=== PATIENT | male | born 1965 | race Caucasian/White ===

== ENCOUNTER 2016-06-16 14:44 | Emergency (ER) | payer OTHER ==
[~2016-06-16] VITALS: Ht 175.3 cm; Wt 83.6 kg
[~2016-06-16 14:44] MED LIST: IBUP-103 PO; ZNTT/150 PO
[2016-06-16 14:50] VITALS: TEMP 37.1; Ht 175.3 cm; Wt 83.6 kg
[2016-06-16] MEDS ORDERED: KETOROLAC TROMETHAMINE 30 MG/ML VIAL IV STA (15:05)
[2016-06-16] MEDS ORDERED: SODIUM CHLORIDE 0.9% 1000ML 1,000 ML IV STA (15:05)
[2016-06-16] MEDS ORDERED: SODIUM CHLORIDE 0.9% 1000ML 1,000 ML IV ONE (15:05)
[2016-06-16 15:22] LABS: BASO % 0.7 %; BASO ABS # 0.04 K/uL (0-0.2); COMPLETE YES; EOS % 0.2 %; HEMATOCRIT 43.2 % (42-52); IG% 0.2 %; LYMPH % 10.2 %; LYMPH ABS # 0.61 K/uL (1.2-3.4); MEAN CELL VOLUME 89.8 fL (80-100); MEAN CORPUSCULAR HGB CONC 35.6 g/dl (32-36); MEAN PLATELET VOLUME 9.1 fL (7.4-10.4); MONO % 13.8 %; NEUT % 74.9 %; PLATELET COUNT 189 K/uL (130-400); RED BLOOD COUNT 4.81 M/uL (4.7-6.1); WHITE BLOOD COUNT 5.96 K/uL (4.8-10.8)
[2016-06-16 15:41] LABS: ALT/SGPT 40 U/L (12-78); BLOOD UREA NITROGEN 16 mg/dl (7-18); BUN/CREATININE RATIO 13.7 (10-20); CALCIUM 9.1 mg/dl (8.5-10.1); CARBON DIOXIDE 26 mmol/L (21-32); CHLORIDE 103 mmol/L (98-107); GLUCOSE 112 mg/dl (70-99); POTASSIUM 4.1 mmol/L (3.5-5.1); SODIUM 138 mmol/L (136-145)
[2016-06-16 15:44] LABS: ALKALINE PHOSPHATASE 82 U/L (45-117); AST/SGOT 27 U/L (15-37)
--- NOTE | 2016-06-16 15:44 | DIAGNOSTIC IMAGING REPORT ---
CHEST ONE VIEW PORTABLE CLINICAL HISTORY: Difficult chest pain, severe headache. Fever, nausea. COMPARISON STUDY: 05/03/2013 FINDINGS: The heart is borderline enlarged. There is no failure. There is no focal pulmonary consolidation. There are no pleural effusions. There are minor left basilar atelectatic changes.[ IMPRESSION: No active disease in the chest. Electronically signed by: Nikos Fernandez M.D. 06/16/2016 3:42 PM Dictated Date/Time: 06/16/2016 3:42 PM
--- NOTE | 2016-06-16 15:59 | EMERGENCY ROOM VISIT NOTE ---
History Report prepared by William: Mani Garcia Under the Supervision of: Dr. Kuldip Luna M.D. First contact with patient: 14:57 Chief Complaint: ILLNESS Stated Complaint: SEVERE CLAY, STOMACH, FEVER, NAUSEA History of Present Illness The patient is a 50 year old male who presents to the Emergency Room with complaints of a persistent dry cough starting yesterday. The patient also complains of body aches, subjective fever, sneezing, and nausea. He took NyQuil without relief. He denies any recent ill contacts, chest pain, vomiting, abdominal pain, or any other complaints. He did not receive his flu shot this year. He is a current smoker. Source of History: patient Onset: yesterday Position: other (global) Quality: other (dry cough) Timing: other (persistent) Modifying Factors (Relieving): other (NyQuil without relief) Associated Symptoms: + fevers, + nausea, No abdominal pain, No chest pain, No vomiting Review of Systems See HPI for pertinent positives & negatives. A total of 10 systems reviewed and were otherwise negative. Past Medical & Surgical Medical Problems: (1) Blunt trauma of neck (2) Cholecystectomy (3) Colitis (4) Colonoscopy (5) Head trauma Old medical records were reviewed. Nurse's notes were reviewed and I agree with. Immunizations are up-to-date Family History FH: heart disease FH: lung disease FHx: cancer FHx: gallbladder disease Hypertension Kidney disease Kidney stones Social History Smoking Status: Current Every Day Smoker Alcohol Use: none Drug Use: none Marital Status: in relationship Occupation Status: employed Current/Historical Medications Scheduled Oseltamivir (Tamiflu), 75 MG PO BID Allergies Coded Allergies: No Known Allergies (Unverified , 06/16/16) Physical Exam Vital Signs Date Time Temp Pulse Resp B/P Pulse Ox O2 Delivery O2 Flow Rate FiO2 06/16/16 17:15 96 18 95/59 94 06/16/16 16:55 96 18 95/59 94 Room Air 06/16/16 14:50 37.1 98 18 110/73 98 Room Air Physical Exam General: Mildly-ill appearing but nontoxic, middle aged male, in no acute distress with a dry, hacking cough. HEENT: Normal cephalic atraumatic. Pupils are equal round and reactive to light. Extraocular movements are intact. Oropharynx is pink with moist mucous membranes. No swelling of the mouth lips or tongue. Neck: Supple with a midline trachea. No meningeal signs or stiffness, no JVD or bruits. No Stridor. Negative Kernig and Brudzinski's sign. Chest: Clear to auscultation bilaterally. No wheezes or rhonchi. No increased work of breathing. Heart: regular rate and rhythm. Abdomen: Soft nontender, nondistended without rebound guarding or rigidity. Extremities: No cyanosis clubbing or edema. No calf tenderness or assymetry Spine/Back. Non tender to palpation. No CVA tenderness Skin: Good turgor without rashes. Neurologic exam: Cranial nerves two through 12 are intact. Motor and sensation are intact and symmetrical throughout. Medical Decision & Procedures ER Provider Diagnostic Interpretation: X-ray results as stated below per interpretation by me and the radiologist: CHEST ONE VIEW PORTABLE CLINICAL HISTORY: Difficult chest pain, severe headache. Fever, nausea. COMPARISON STUDY: 05/03/2013 FINDINGS: The heart is borderline enlarged. There is no failure. There is no focal pulmonary consolidation. There are no pleural effusions. There are minor left basilar atelectatic changes.[ IMPRESSION: No active disease in the chest. Electronically signed by: Nikos Fernnadez M.D. 06/16/2016 3:42 PM Dictated Date/Time: 06/16/2016 3:42 PM Laboratory Results 06/16/16 15:15 Red Blood Count 4.81, Mean Corpuscular Volume 89.8, Mean Corpuscular Hemoglobin 32.0, Mean Corpuscular Hemoglobin Concent 35.6, Mean Platelet Volume 9.1, Neutrophils (%) (Auto) 74.9, Lymphocytes (%) (Auto) 10.2, Monocytes (%) (Auto) 13.8, Eosinophils (%) (Auto) 0.2, Basophils (%) (Auto) 0.7, Neutrophils # (Auto ) 4.47, Lymphocytes # (Auto) 0.61, Monocytes # (Auto) 0.82, Eosinophils # (Auto ) 0.01, Basophils # (Auto) 0.04 06/16/16 15:15 Test 06/16/16 15:15 06/16/16 15:20 White Blood Count 5.96 K/uL (4.8-10.8) Red Blood Count 4.81 M/uL (4.7-6.1) Hemoglobin 15.4 g/dL (14.0-18.0) Hematocrit 43.2 % (42-52) Mean Corpuscular Volume 89.8 fL (80-100) Mean Corpuscular Hemoglobin 32.0 pg (25-34) Mean Corpuscular Hemoglobin Concent 35.6 g/dl (32-36) Platelet Count 189 K/uL (130-400) Mean Platelet Volume 9.1 fL (7.4-10.4) Neutrophils (%) (Auto) 74.9 % Lymphocytes (%) (Auto) 10.2 % Monocytes (%) (Auto) 13.8 % Eosinophils (%) (Auto) 0.2 % Basophils (%) (Auto) 0.7 % Neutrophils # (Auto) 4.47 K/uL (1.4-6.5) Lymphocytes # (Auto) 0.61 K/uL (1.2-3.4) Monocytes # (Auto) 0.82 K/uL (0.11-0.59) Eosinophils # (Auto) 0.01 K/uL (0-0.5) Basophils # (Auto) 0.04 K/uL (0-0.2) RDW Standard Deviation 42.1 fL (36.4-46.3) RDW Coefficient of Variation 12.8 % (11.5-14.5) Immature Granulocyte % (Auto) 0.2 % Immature Granulocyte # (Auto) 0.01 K/uL (0.00-0.02) Anion Gap 9.0 mmol/L (3-11) Est Creatinine Clear Calc Drug Dose 73.7 ml/min Estimated GFR () 81.2 Estimated GFR (Non- 70.1 BUN/Creatinine Ratio 13.7 (10-20) Calcium Level 9.1 mg/dl (8.5-10.1) Total Bilirubin 0.4 mg/dl (0.2-1) Direct Bilirubin < 0.1 mg/dl (0-0.2) Aspartate Amino Transf (AST/SGOT) 27 U/L (15-37) Alanine Aminotransferase (ALT/SGPT) 40 U/L (12-78) Alkaline Phosphatase 82 U/L (45-117) Total Protein 7.7 gm/dl (6.4-8.2) Albumin 3.8 gm/dl (3.4-5.0) Lipase 185 U/L (73-393) Influenza Type A Antigen Neg for Influ A (NEG) Influenza Type B Antigen Neg for Influ B (NEG) Laboratory studies as stated above per my review. Medications Administered Medications (Trade) Dose Ordered Sig/Mariposa Route Start Time Stop Time Status Last Admin Dose Admin Sodium Chloride (Nss 1000ml) 1,000 ml @ 999 mls/hr Q1H1M STAT IV 06/16/16 15:05 06/16/16 16:05 DC 06/16/16 15:17 999 MLS/HR Ketorolac Tromethamine (Toradol Inj) 30 mg NOW STAT IV 06/16/16 15:05 06/16/16 15:07 DC 06/16/16 15:20 30 MG Oseltamivir Phosphate (Tamiflu Cap) 75 mg NOW STAT PO 06/16/16 16:13 06/16/16 16:14 DC 06/16/16 17:10 75 MG ED Course 1457: Past medical records reviewed. The patient was evaluated in room C12B, and a complete history and physical examination were performed. 1505: Toradol Inj 30 mg IV, Sodium Chloride 1000 ml @ 200 mls/hr IV, Sodium Chloride 1000 ml @ 999 mls/hr IV 1613: Tamiflu Cap 75 mg PO. Upon reevaluation, the patient is resting comfortably. I discussed the results and treatment plan with him. He verbalized agreement of the treatment plan. The patient was discharged home. Medical Decision Differential diagnosis includes but is not limited to influenza, bronchitis, pneumonia, dehydration, electrolyte and metabolic abnormality. This patient comes in as described above he has influenza-like illness. He has a constellation of symptoms including headache and body aches dry hacking cough. He looks well on exam. He is nontoxic and non-lethargic and he has nothing to suggest meningitis or encephalitis. IV access established hydrated with IV normal saline and he given Toradol 30 mg IV. Chest x-ray was obtained as well as multiple blood testing and influenza swab. He was reassessed frequently. Chest x-ray was clear and is not show pneumonia or pneumothorax or CHF. No acute electrode or metabolic analysis. He has nothing suggest has liver, gallbladder, or pancreas disease. Influenza swab was negative however this is not a perfect test. Symptoms are very consistent with influenza and I will treat with Tamiflu. He was given dose of Tamiflu here as well as prescription. He should rest and drink plenty of fluids use Tylenol and/or ibuprofen for pain. Do not exceed the [id number] recommended dosages. Return if: Worsening of symptoms, not tolerating fluids, fever orchills, any new problems or concerns.He was happy with the plan and discharged to home. Impression Primary Impression: Influenza-like illness Scribe Attestation The scribe's documentation has been prepared under my direction and personally reviewed by me in its entirety. I confirm that the note above accurately reflects all work, treatment, procedures, and medical decision making performed by me. Departure Information Dispostion Home / Self-Care Prescriptions Oseltamivir (Tamiflu) 75 Mg Cap 75 MG PO BID, #10 CAP Prov: Kuldip Luna M.D. 06/16/16 Referrals Dario Culp M.D. (PCP) Forms HOME CARE DOCUMENTATION FORM, IMPORTANT VISIT INFORMATION, WORK / SCHOOL INSTRUCTIONS Patient Instructions My [facility] Additional Instructions Rest. Drink plenty of fluids. Use Tamiflu twice a day for 5 days Use ibuprofen 400 mg every 6 hours as needed for fever or aches. Take with food Return if: Worsening of symptoms, not tolerating fluids, any new problems or concerns. Follow-up with your doctor in 1-2 days for recheck.
[2016-06-16] MEDS ORDERED: OSELTAMIVIR PHOSPHATE 75 MG CAP PO STA (16:13)
[2016-06-16] MEDS ORDERED: OSEL75CA12 PO (16:15)
[2016-06-16 17:15] VITALS: BP 95/59; PULSE 96; O2SAT 94
== END 2016-06-16 17:58 | disposition home or self-care (01) ==
LOC: C.EDB 14:46 → C.EDC 17:58
DX: J11.1 Influenza due to unidentified influenza virus with other respiratory manifestations (principal); F17.200 Nicotine dependence, unspecified, uncomplicated; Z82.49 Family history of ischemic heart disease and other diseases of the circulatory system; Z84.1 Family history of disorders of kidney and ureter

== ENCOUNTER 2021-05-16 08:00 | Inpatient (IN) ==
[2021-05-16] MEDS ORDERED: SODIUM CHLORIDE 0.9% 1000ML 1,000 ML IV STA (08:28)
[2021-05-16] MEDS ORDERED: ALBUT/IPRATROP 3MG/0.5MG NEB 3 ML VIAL NEB STA (08:28)
[2021-05-16] MEDS ORDERED: KETOROLAC TROMETHAMINE 15 MG/ML VIAL IV STA (08:28)
[2021-05-16] MEDS ORDERED: ONDANSETRON INJ 2 MG/ML 2 ML VIAL IV STA (08:28)
--- NOTE | 2021-05-16 08:33 | Emergency Department Note ---
Impression & Plan Acute hypoxemic respiratory failure due to COVID-19, Pneumonia due to COVID-19 virus, Dehydration ED Provider Note CHIEF COMPLAINT: Dehydration, cough, congestion, nausea/vomiting/diarrhea HISTORY OF PRESENTING ILLNESS: This is a 55-year-old male who presents to the emergency department by private vehicle who presents to the emergency department by private vehicle with complaint of nausea/vomiting and diarrhea with cough and congestion for the past 8 days. Patient is concerned that he may be dehydrated noting that he has not been able to eat or drink much for the past 3-4 days. He has been having some headaches and body aches off and on for the past 8 days as well and notes generalized abdominal cramping, but denies any persistent abdominal pain. He rates his headaches and body aches 10/10. He has not tried any [id number] medications for his symptoms. He denies any chest pain, chest tightness, or shortness of breath, palpitations, dizziness or syncope. He is a smoker, noting he usually smokes about half a pack per day, but has not been able to smoke for the past 8 days due to his illness. He denies any known exposures for COVID-19 or influenza, but does state he was around friends and family for the holidays. He is not vaccinated for COVID-19 and has not received a flu shot. REVIEW OF SYSTEMS: A complete 10 point review of systems was reviewed with the patient with pertinent positives and negatives as per history of present illness. All else were negative. PAST MEDICAL HISTORY: No significant past medical or surgical history SOCIAL HISTORY: Lives at home, he is a current everyday smoker ALLERGIES: No known allergies PHYSICAL EXAM: CONSTITUTIONAL: Pleasant and cooperative. Nontoxic-appearing and in no acute distress. Moderately dehydrated. HEENT: Normocephalic, atraumatic. PERRL, EOMI with no nystagmus. Pharynx normal. Dry mucous membranes. NECK: Supple, full active range of motion without discomfort. No cervical adenopathy. No neck stiffness or meningismus. RESPIRATORY: Diminished in the bases with scattered expiratory wheezes thr oughout, no crackles, rhonchi or stridor. No tachypnea or labored breathing, no accessory muscle use. Equal expansion bilaterally. CARDIOVASCULAR: Regular rate and rhythm with no murmurs, rubs or gallops. Normal peripheral perfusion. No edema. GASTROINTESTINAL: Soft, nontender to palpation throughout nondistended. No palpable masses or HSM. Bowel sounds present in all quadrants. No CVA tenderne ss bilaterally. MUSCULOSKELETAL: Full range of motion of all joints without discomfort. INTEGUMENTARY: No rash or other significant dermatologic conditions noted. NEUROLOGIC: Alert and oriented X 4 with normal affect. Cranial nerves II-XII grossly intact, no facial droop. No focal neurologic deficits noted. Normal strength and sensation in all 4 extremities. Normal speech. Normal gait observed. ED COURSE AND MEDICAL DECISION MAKING: CC: Patient presenting with complaint of dehydration, cough, congestion, nausea/vomiting/diarrhea DIFFERENTIAL DIAGNOSIS: Includes, but not limited to COVID-19, influenza, dehydration, electrolyte abnormality, bronchitis, pneumonia, gastroenteritis, infectious colitis, UTI, COPD, among others. INTERPRETATION OF LABS: Mild leukopenia, no anemia, mild thrombocytopenia, mild hyponatremia, no other significant electrolyte abnormalities, elevated BUN with normal creatinine, AST mildly elevated, otherwise normal liver enzymes. Mildly elevated lipase. CRP is slightly elevated, procalcitonin not significantly elevated. Influenza negative, COVID-19 positive. MEDICATION RECONCILIATION: I attest that I have personally reviewed the patient's current medication list. INITIAL VITAL SIGNS REVIEW: I reviewed the patient's initial vital signs and interpret them as follows: T: Afebrile; BP: Normotensive; HR: Mildly tachycardic; RR: Within normal limits; Pulse Ox: Within normal limits on room air. MDM SUMMARY: Patient was evaluated at bedside, history and physical exam performed.The patient was evaluated in room A9 under full Covid precautions. Patient is alert and oriented, in no acute distress, resting calmly in the stretcher. He is afebrile and nontoxic-appearing, but appears moderately dehydrated clinically. Lungs are diminished in the bases with scattered expiratory wheezes. No respiratory distress. Cardiac monitoring: An order was placed for continuous cardiac monitoring. The monitor shows a rate of 92 bpm with normal sinus rhythm. I do strongly suspect the patient may have COVID-19 as cause of his symptoms. Orders were placed for labs, including COVID-19 and influenza testing, UA, IV fluid bolus for hydration, IV Toradol for pain, IV Zofran for nausea, DuoNeb for cough and wheezing, chest x-ray. Patient discussed with Dr. Maynard, who agrees with my assessment, plan, and disposition. Labs and imaging reviewed, labs notable for mild leukopenia and thrombocytopenia, with no anemia. Does appear to be mildly dehydrated with elevated BUN and mild hyponatremia. Lipase was noted to have mild elevation. Testing for COVID-19 was positive. Influenza was negative. Chest x-ray shows patchy interstitial and alveolar opacities bilaterally which appears consistent with Covid/viral pneumonia. Nursing staff notified me that the patient has been hypoxic with sats of 88%, and he was placed on 2L nasal cannula. I reevaluated the patient, he does not appear visibly distressed. I discussed with the patient that as he is now requiring oxygen with his COVID-19 infection and pneumonia that I would recommend admission to the hospital and he was agreeable to this. Additional orders were placed for IV Decadron 6 mg, CRP and procalcitonin labs added on. I spoke on the phone with Dr. Adams, [facility] Hospitalist, who agreed to evaluate the patient for admission. The patient was stable at the time of admission. The chart was completed utilizing [employer] Speech voice recognition software. Grammatical errors, random word insertions, pronoun errors, and incomplete sentences are an occasional consequence of this system due to software limitations, ambient noise, and hardware issues. Any formal questions or con cerns about the content, text, or information contained within the body of this dictation should be directly addressed to the nurse practitioner for clarification. Past Med/Surg History Medical History Right rotator cuff tear arthropathy Surgical History No significant past surgical history Social History Smoking Status: Current every day smoker Tobacco Type: Cigarettes Preferred Language: Honduran marital status: Life Partner current occupational status: employed Feels Safe at Home: Yes Allergies Allergies Allergy/AdvReac Type Severity Reaction Status Date / Time No Known Allergies Allergy Unverified 05/16/21 09:35 Home Meds Home Medications Medication Instructions Recorded Confirmed ascorbic acid (vitamin C) 125 mg 0 mg PO QAM 05/16/21 05/16/21 chewable tablet (Vitamin C) ibuprofen 200 mg tablet (Advil) 600 mg PO QAM 05/16/21 05/16/21 Results & Data (ED) Vital Signs Vital Signs - 24 hr 05/16/21 08:06 05/16/21 09:30 05/16/21 09:42 Temperature 37.2 C Temperature Source Oral Pulse Rate 101 H 86 Pulse Rate [Right Finger] 88 Pulse Rate from SpO2 Sensor 86 Respiratory Rate 20 16 18 Respiratory Effort / Characteristics Non-Labored Respiratory Depth Normal Blood Pressure 101/71 Blood Pressure [Left Arm] 108/76 Blood Pressure Mean 81 Blood Pressure Mean [Left Arm] 86 Pulse Oximetry 97 88 L 94 Oxygen Delivery Method Room Air Room Air Oxygen Flow Rate Sepsis Recent Fever Within 48 Hours Yes Sepsis New/Unexplained Change in Mental Status No Sepsis Action Taken by Nursing No Action Required 05/16/21 09:46 05/16/21 09:47 05/16/21 10:00 Temperature Temperature Source Pulse Rate 83 Pulse Rate [Right Finger] Pulse Rate from SpO2 Sensor 84 Respiratory Rate 19 Respiratory Effort / Characteristics Respiratory Depth Blood Pressure 105/62 Blood Pressure [Left Arm] Blood Pressure Mean 76 Blood Pressure Mean [Left Arm] Pulse Oximetry 88 L 88 L 95 Oxygen Delivery Method Room Air Nasal Cannula Oxygen Flow Rate 2 Sepsis Recent Fever Within 48 Hours Sepsis New/Unexplained Change in Mental Status Sepsis Action Taken by Nursing 05/16/21 10:30 05/16/21 11:00 Temperature Temperature Source Pulse Rate 87 81 Pulse Rate [Right Finger] Pulse Rate from SpO2 Sensor 86 80 Respiratory Rate 16 22 Respiratory Effort / Characteristics Respiratory Depth Blood Pressure 101/65 110/71 Blood Pressure [Left Arm] Blood Pressure Mean 77 84 Blood Pressure Mean [Left Arm] Pulse Oximetry 92 95 Oxygen Delivery Method Oxygen Flow Rate Sepsis Recent Fever Within 48 Hours Sepsis New/Unexplained Change in Mental Status Sepsis Action Taken by Nursing Laboratory Data Result diagrams: 05/16/21 08:50 05/16/21 08:50 Lab Results 05/16/21 05/16/21 05/16/21 Range/Units 08:20 08:50 08:50 WBC 3.69 L (4.8-10.8) K/uL RBC 5.17 (4.7-6.1) M/uL Hgb 16.4 (14.0-18.0) g/dL Hct 46.9 (42-52) % MCV 90.7 (80-100) fL MCH 31.7 (25-34) pg MCHC 35.0 (32-36) g/dL RDW Std Deviation 42.5 (36.4-46.3) fL RDW Coeff of Ashlee 12.7 (11.5-14.5) % Plt Count 114 L (130-400) K/uL MPV 10.9 H (7.4-10.4) fL Immature Gran % (Auto) 0.3 % Neut % (Auto) 61.2 % Lymph % (Auto) 32.5 % Johnston % (Auto) 5.7 % Eos % (Auto) 0.0 % Baso % (Auto) 0.3 % Neut # (Auto) 2.26 (1.4-6.5) K/uL Lymph # (Auto) 1.20 (1.2-3.4) K/uL Johnston # (Auto) 0.21 (0.11-0.59) K/uL Eos # (Auto) 0.00 (0-0.5) K/uL Baso # (Auto) 0.01 (0-0.2) K/uL Immature Gran # (Auto) 0.01 (0.00-0.02) K/uL Sodium 132 L (136-145) mmol/L Potassium 4.0 (3.5-5.1) mmol/L Chloride 98 (98-107) mmol/L Carbon Dioxide 30 (21-32) mmol/L Anion Gap 4.0 (3-11) BUN 25 H (7-18) mg/dl Creatinine 1.08 (0.6-1.4) mg/dl Est Cr Clr Drug Dosing 77.3 ml/min Est GFR ( Amer) 89.1 ml/min Est GFR (Non-Af Amer) 76.9 ml/min BUN/Creatinine Ratio 23.4 H (10-20) Glucose 112 H (70-99) mg/dl Calcium 9.1 (8.5-10.1) mg/dl Total Bilirubin 0.4 (0.2-1) mg/dl AST 68 H (15-37) U/L ALT 52 (12-78) Alkaline Phosphatase 60 (45-117) U/L C-Reactive Protein (0-0.29) mg/dl Total Protein 7.3 (6.4-8.2) gm/dl Albumin 3.4 (3.4-5.0) gm/dl Globulin 3.9 (2.5-4.0) gm/dl Albumin/Globulin Ratio 0.9 (0.9-2) Lipase 820 H (73-393) U/L Procalcitonin (0-0.5) ng/ml SARS-CoV-2, RNA, NAAT POSITIVE A* (NEGATIVE) 05/16/21 05/16/21 Range/Units 08:50 10:33 WBC (4.8-10.8) K/uL RBC (4.7-6.1) M/uL Hgb (14.0-18.0) g/dL Hct (42-52) % MCV (80-100) fL MCH (25-34) pg MCHC (32-36) g/dL RDW Std Deviation (36.4-46.3) fL RDW Coeff of Ashlee (11.5-14.5) % Plt Count (130-400) K/uL MPV (7.4-10.4) fL Immature Gran % (Auto) % Neut % (Auto) % Lymph % (Auto) % Johnston % (Auto) % Eos % (Auto) % Baso % (Auto) % Neut # (Auto) (1.4-6.5) K/uL Lymph # (Auto) (1.2-3.4) K/uL Johnston # (Auto) (0.11-0.59) K/uL Eos # (Auto) (0-0.5) K/uL Baso # (Auto) (0-0.2) K/uL Immature Gran # (Auto) (0.00-0.02) K/uL Sodium (136-145) mmol/L Potassium (3.5-5.1) mmol/L Chloride (98-107) mmol/L Carbon Dioxide (21-32) mmol/L Anion Gap (3-11) BUN (7-18) mg/dl Creatinine (0.6-1.4) mg/dl Est Cr Clr Drug Dosing ml/min Est GFR ( Amer) ml/min Est GFR (Non-Af Amer) ml/min BUN/Creatinine Ratio (10-20) Glucose (70-99) mg/dl Calcium (8.5-10.1) mg/dl Total Bilirubin (0.2-1) mg/dl AST (15-37) U/L ALT (12-78) Alkaline Phosphatase (45-117) U/L C-Reactive Protein 1.03 H (0-0.29) mg/dl Total Protein (6.4-8.2) gm/dl Albumin (3.4-5.0) gm/dl Globulin (2.5-4.0) gm/dl Albumin/Globulin Ratio (0.9-2) Lipase (73-393) U/L Procalcitonin 0.06 (0-0.5) ng/ml SARS-CoV-2, RNA, NAAT (NEGATIVE) Administered Medications Enoxaparin Sodium (Enoxaparin Inj 40 Mg/0.4 Ml Syr) 40 mg SQ Q12H MAX Stop: 06/15/21 12:59 Last Admin: 05/16/21 13:36 Dose: 40 mg Documented by: [id number] Discontinued Medications Acetaminophen (Acetaminophen 500 Mg Tab) Confirm Administered Dose 1,000 mg .ROUTE .STK-MED ONE Stop: 05/16/21 12:04 Last Admin: 05/16/21 12:07 Dose: 1,000 mg Documented by: [id number] Albuterol (Albut/Ipratrop 3mg/0.5mg Neb 3 Ml Vial) 3 ml NEB NOW STA; Protocol Stop: 05/16/21 08:29 Last Admin: 05/16/21 08:56 Dose: 3 ml Documented by: [id number] Dexamethasone Sodium Phosphate (DexamethasonePf 10 Mg/Ml Vial) 6 mg IV NOW ONE Stop: 05/16/21 09:58 Last Admin: 05/16/21 12:00 Dose: 6 mg Documented by: [id number] Sodium Chloride (Nss 1000ml) 1,000 mls @ 999 mls/hr IV .Q1H1M STA Stop: 05/16/21 09:28 Last Infusion: 05/16/21 10:48 Dose: 0 mls/hr Documented by: [id number] Admin: 05/16/21 08:56 Dose: 999 mls/hr Documented by: [id number] Ketorolac Tromethamine (Ketorolac Tromethamine 15 Mg/Ml Vial) 15 mg IV NOW STA Stop: 05/16/21 08:29 Last Admin: 05/16/21 08:56 Dose: 15 mg Documented by: [id number] Ondansetron HCl (Ondansetron Inj 2 Mg/Ml 2 Ml Vial) 4 mg IV NOW STA Stop: 05/16/21 08:29 Last Admin: 05/16/21 08:56 Dose: 4 mg Documented by: [id number] Imaging Data Radiologist's Impression: Chest X-Ray 05/16/21 08:28 XR chest 1V portable CLINICAL HISTORY: cough, congestion, poss COVID. COMPARISON STUDY: 06/16/2016 TECHNIQUE: 1 view of the chest FINDINGS: Single frontal view of the chest demonstrates the cardiomediastinal silhouette to be within normal limits. Minimal patchy interstitial and alveolar opacities are present involving the lower lobes bilaterally. The findings are most characteristic of a viral type pneumonitis. Covid 19 pneumonia should be excluded. There is no evidence for pleural effusion. There is no evidence for vascular congestion. There is no acute osseous pathology. IMPRESSION: Minimal patchy interstitial and alveolar opacities are present bilaterally characteristic of a viral type pneumonitis and probable early Covid 19 pneumonia. ACT 112: Negative or not required by law. Electronically signed by: Emmanuel De La Rosa M.D. 05/16/2021 8:46 AM Discharge Plan Visit Data Chief Complaint: Dehydration Stated Complaint: CLAY,SORE THROAT,CONGESTION,COUGH,DEHYDRATED ED Provider: Lucho Maynard ED Midlevel Provider: Raine Hatch Discharge Problem: Acute hypoxemic respiratory failure due to COVID-19, Pneumonia due to COVID-19 virus, Dehydration Patient Disposition: Admitted As Inpatient Condition: Good
--- NOTE | 2021-05-16 08:47 | XRay Report ---
XR chest 1V portable CLINICAL HISTORY: cough, congestion, poss COVID. COMPARISON STUDY: 06/16/2016 TECHNIQUE: 1 view of the chest FINDINGS: Single frontal view of the chest demonstrates the cardiomediastinal silhouette to be within normal li mits. Minimal patchy interstitial and alveolar opacities are present involving the lower lobes bilate rally. The findings are most characteristic of a viral type pneumonitis. Covid 19 pneumonia should be excluded. There is no evidence for pleural effusion. There is no evidence for vascular congestion. T here is no acute osseous pathology. IMPRESSION: Minimal patchy interstitial and alveolar opacities are present bilaterally characteristic of a viral type pneumonitis and probable early Covid 19 pneumonia. ACT 112: Negative or not required by law. Electronically signed by: Emmanuel De La Rosa M.D. 05/16/2021 8:46 AM
[2021-05-16 09:01] LABS: Basophils # (auto) 0.01 K/uL (0-0.2); Basophils % (auto) 0.3 %; Hematocrit (blood only) 46.9 % (42-52); Hemoglobin 16.4 g/dL (14.0-18.0); Immature Granulocytes # (auto) 0.01 K/uL (0.00-0.02); Immature Granulocytes % (auto) 0.3 %; Lymphocytes % (auto) 32.5 %; Mean Corpuscular Hemoglobin 31.7 pg (25-34); Mean Corpuscular Volume 90.7 fL (80-100); Mean Platelet Volume 10.9 fL (7.4-10.4); Monocytes # (auto) 0.21 K/uL (0.11-0.59); Monocytes % (auto) 5.7 %; Neutrophils # (auto) 2.26 K/uL (1.4-6.5); Neutrophils % (auto) 61.2 %; Platelet Count 114 K/uL (130-400); RDW Coefficient of Variation 12.7 % (11.5-14.5); RDW Standard Deviation 42.5 fL (36.4-46.3); Red Blood Count 5.17 M/uL (4.7-6.1); White Blood Count 3.69 K/uL (4.8-10.8)
[2021-05-16 09:23] LABS: Albumin Level 3.4 gm/dl (3.4-5.0); BUN Creatinine Ratio 23.4 (10-20); Calcium 9.1 mg/dl (8.5-10.1); Creatinine Clr Calc Pharmacy 77.3 ml/min; Est GFR (African American) 89.1 ml/min; Est GFR (Non-African American) 76.9 ml/min
[2021-05-16 09:26] LABS: Albumin Globulin Ratio 0.9 (0.9-2); Bilirubin,Total 0.4 mg/dl (0.2-1); Globulin 3.9 gm/dl (2.5-4.0); Total Protein 7.3 gm/dl (6.4-8.2)
[2021-05-16 09:27] LABS: Influenza A virus by PCR Negative (Negative); Influenza B virus by PCR Negative (Negative)
[2021-05-16] MEDS ORDERED: dexAMETHasone**PF** 10 MG/ML VIAL IV ONE (09:57)
--- NOTE | 2021-05-16 10:33 | History & Physical Report ---
Date of Service May 16, 2021 Assessment & Plan (1) Acute respiratory failure with hypoxia: Plan: Perry is a 55-year-old male with no significant past medical history who presents with acute hypoxic respiratory failure 2/2 Covid pneumonia. Presented with dehydration, fatigue, and shortness of breath. Acute hypoxic respiratory failure 2/2 Covid pneumonia Covid positive Vaccination status: Unvaccinated First day of symptoms: First day of sx 05/07-05/08/21 (8-9 days prior to admission) Flu A-/flu B- CRP 1.03 - CXR: Minimal patchy interstitial and alveolar opacities are present bilaterally characteristic of a viral type pneumonitis and probable early Covid 19 pneumonia. Hypoxic to 88% requiring 2 L of supplemental nasal cannula Home oxygen: No requirements Creatinine normal AST 68, ALT 52 Remdesivir: Discussed risk/benefits. Offered to patient, although discussed that it is most effective early in disease with minimal benefit and is not indicated at day 10. Following shared decision making defer remdesivir, continue with Decadron. Continue dexamethasone daily x10-day course Baricitinib: Not indicated, CRP less than 7.5 and not requiring high flow - Lovenox COVID DVT PPx - 1/2 ppd tobacco use none in last week (2) COVID-19: Plan: - As above Plan: DVT PPx: Lovenox as above Diet: Regular Disposition: Medical surgical CODE STATUS: Full code, discussed with patient History of Present Illness Chief Complaint: Fatigue, Shortness of Breath Primary Care Provider: Dario Culp MD Perry is a 55-year-old male with no significant past medical history who presents with acute hypoxic respiratory failure 2/2 Covid pneumonia. Presented with dehydration, fatigue, and shortness of breath. Patient is 55-year-old male who denies other past medical history including heart disease and lung disease who presents with about 8 days of Covid symptoms which started with weakness, fatigue, cough, and some shortness of breath. He reports multiple people in his home including his children and his girlfriend have been sick and had a cough, his daughter was tested for school and was most recently negative. He reports he has had decreased appetite and some intermittent nausea but no vomiting, diarrhea, constipation. He has had loss of the sense of taste and smell. He is short of breath coming into the emergency department, reports he feels comfortable and not short of breath at time of bedside assessment while on 2 L of nasal cannula. He has a nonproductive cough. He is not vaccinated. Denies chest pain, chest pressure, palpitations, syncope, presyncope, focal weakness. Medical History: Reviewed, denies PMHx Medications: Reviewed, No chronic meds Surgical History: Reviewed, denies Allergies: Reviewed, NKDA Social History: 1/2 ppd tobacco use, non in last week. Declines nicotine patch. Denies etoh and rec drug use. Code Status: Full Allergies Allergy/AdvReac Type Severity Reaction Status Date / Time No Known Allergies Allergy Unverified 05/16/21 09:35 Home Medications Medication Instructions Recorded Confirmed Type ascorbic acid (vitamin C) 125 mg 0 mg PO QAM 05/16/21 05/16/21 History chewable tablet (Vitamin C) ibuprofen 200 mg tablet (Advil) 600 mg PO QAM 05/16/21 05/16/21 History Past Med/Surg History Medical History Right rotator cuff tear arthropathy Surgical History No significant past surgical history Social History Smoking Status: Current every day smoker Tobacco Type: Cigarettes Preferred Language: Malay marital status: Life Partner current occupational status: employed Feels Safe at Home: Yes Review of Systems Review of Systems: All systems reviewed & are unremarkable except as noted in HPI & below Physical Exam Physical Exam: General: A&Ox3. NAD. Cooperative. HEENT: Atraumatic, normocephalic. Visual acuity and hearing grossly intact. Pupils equal and reactive to light. Pulm: CTAB A&P. -wheezes, -rales, -rhonchi. Symmetrical chest rise. No increased work of breathing. No respiratory distress. Cardiac: RRR, -mrg. Radial pulses intact and symmetrical. Abdominal: Nontender, nondistended, soft. BS present. Ext: Warm, dry. No pitting edema. 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 Sensation to soft touch intact bilaterally without asymmetry. PT, DP, and radial pulses intact. Results & Data Results & Data ([facility]) Vital Signs (Past 12 Hours) Vital Signs Temp Pulse Pulse Resp BP BP Pulse Ox 05/16/21 09:47 88 L 05/16/21 09:46 88 L 05/16/21 09:30 88 16 108/76 88 L 05/16/21 08:06 37.2 C 101 H 20 101/71 97 PG Care Time/CCT Total # of Minutes Spent Total Time Spent with Patient: Total time spent is greater than 50% in coordination of care (as documented) at patient's floor/unit and/or counseling patient: Coding Level of Care Code 61383 Initial Inpt Care Lvl 2 Diagnoses Acute respiratory failure with hypoxia J96.01 COVID-19 U07.1
[2021-05-16] MEDS ORDERED: ACETAMINOPHEN 500 MG TAB ONE (12:03)
[2021-05-16] MEDS ORDERED: ACETAMINOPHEN 325 MG TAB PO PRN (12:38)
[2021-05-16] MEDS ORDERED: POLYETHYLENE (MIRALAX) 17 GM PACK PO PRN (12:38)
[2021-05-16] MEDS: ENOXAPARIN INJ 40 MG/0.4 ML SYR SQ SCH (13:36)
[2021-05-16] MEDS ORDERED: SODIUM CHLORIDE 0.9% 1000ML 1,000 ML IV SCH (14:45)
[2021-05-16 21:41] LABS: Appearance Urine Clear (Clear); Bacteria Urine Automated Negative (Negative); Bilirubin Urine Negative (Negative); Blood Urine 1+ (Negative); Color Urine Yellow; Epithelial Cell Urine Auto >30 /lpf (0-5); Glucose Urine UA Trace (Negative); Ketones Urine Negative (Negative); Leukocyte Esterase Urine Negative (Negative); Nitrite Urine Negative (Negative); Protein Urine 2+ (Negative); RBC Urine Automated 0-4 /hpf (0-4); Specific Gravity Urine 1.023 (1.000-1.030); Urobilinogen Urine Positive (Negative); pH Urine 6.5 (4.5-7.5)
[2021-05-17] MEDS: ENOXAPARIN INJ 40 MG/0.4 ML SYR SQ SCH ×2 (01:06→13:36)
[2021-05-17 07:08] LABS: Hematocrit (blood only) 42.5 % (42-52); Hemoglobin 14.6 g/dL (14.0-18.0); Immature Granulocytes # (auto) 0.03 K/uL (0.00-0.02); Immature Granulocytes % (auto) 0.7 %; Lymphocytes # (auto) 1.07 K/uL (1.2-3.4); Mean Corpuscular Hemoglobin 31.5 pg (25-34); Mean Corpuscular Hgb Conc 34.4 g/dL (32-36); Mean Corpuscular Volume 91.8 fL (80-100); Mean Platelet Volume 11.2 fL (7.4-10.4); Monocytes # (auto) 0.25 K/uL (0.11-0.59); Monocytes % (auto) 5.6 %; Neutrophils # (auto) 3.11 K/uL (1.4-6.5); Neutrophils % (auto) 69.7 %; Platelet Count 134 K/uL (130-400); RDW Coefficient of Variation 12.8 % (11.5-14.5); RDW Standard Deviation 43.2 fL (36.4-46.3); Red Blood Count 4.63 M/uL (4.7-6.1); White Blood Count 4.46 K/uL (4.8-10.8)
[2021-05-17 07:48] LABS: Albumin Globulin Ratio 0.9 (0.9-2); Albumin Level 2.9 gm/dl (3.4-5.0); BUN Creatinine Ratio 24.9 (10-20); Bilirubin,Total 0.3 mg/dl (0.2-1); Calcium 8.6 mg/dl (8.5-10.1); Est GFR (African American) 117.8 ml/min; Est GFR (Non-African American) 101.6 ml/min; Globulin 3.4 gm/dl (2.5-4.0); Total Protein 6.3 gm/dl (6.4-8.2)
[2021-05-17 07:51] LABS: C Reactive Protein 1.05 mg/dl (0-0.29)
[2021-05-17] MEDS: dexAMETHasone 6 MG in SYRINGE 0 ML IV SCH (07:53)
[2021-05-17] MEDS: BENZONATATE 100 MG CAPSULE PO PRN ×2 (10:11→18:45)
--- NOTE | 2021-05-17 13:46 | Hospitalist Progress Note ---
Date of Service May 17, 2021 Assessment & Plan (1) Acute respiratory failure with hypoxia: Plan: Perry is a 55-year-old male with no significant past medical history who presents with acute hypoxic respiratory failure 2/2 Covid pneumonia. Presented with dehydration, fatigue, and shortness of breath. Acute hypoxic respiratory failure 2/2 Covid pneumonia Covid positive Vaccination status: Unvaccinated First day of symptoms: First day of sx 05/07-05/08/21 (8-9 days prior to admission) Flu A-/flu B- - CXR: Minimal patchy interstitial and alveolar opacities are present bilaterally characteristic of a viral type pneumonitis and probable early Covid 19 pneumonia. Hypoxic to 88% requiring 2 L of supplemental nasal cannula Home oxygen: No requirements Creatinine normal AST 68, ALT 52 Remdesivir: Discussed risk/benefits. Offered to patient, although discussed that it is most effective early in disease with minimal benefit and is not indicated at day 10. Following shared decision making defer remdesivir, continue with Decadron. Continue dexamethasone daily x10-day course Baricitinib: Not indicated, CRP less than 7.5 and not requiring high flow - Lovenox COVID DVT PPx - 1/2 ppd tobacco use none in last week Patient with continued now O2 requirement some low-grade temperatures [id number] intermittently with some feeling of fever/chills. CXR not consistent with bacterial pneumonia, pro-[place] normal, no other obvious source of infection. Patient without leg swelling or tachycardia,? Viral versus atelectatic. Continue to follow clinically at this time. (2) COVID-19: Plan: - As above Plan: DVT PPx: Lovenox as above Diet: Regular Disposition: Medical surgical CODE STATUS: Full code, discussed with patient Admission and Anticipated Discharge Date Admission Date: May 16, 2021 Subjective Perry is seen at the bedside this morning. Reports he continues to feel fatigued with some shortness of breath, but improved from prior. Is currently on 2 L of nasal cannula. [place] a little feverish overnight, temperature 37.737.8 intermittently and last 12 hours. [place] like he had some chills. Mild nausea, no vomiting/diarrhea/constipation. Denies chest pain, chest pressure, palpitations. Denies difficulty breathing. No leg swelling/pain. Review of Systems Review of Systems: All systems reviewed & are unremarkable except as noted in Subjective Physical Exam Physical Exam: General: A&Ox3. NAD. Cooperative. HEENT: Atraumatic, normocephalic. Visual acuity and hearing grossly intact. Pupils equal and reactive to light. Pulm: Scattered crackles, no wheezes or rhonchi. Symmetrical chest rise. No increased work of breathing. No respiratory distress. Cardiac: RRR, -mrg. Radial pulses intact and symmetrical. Abdominal: Nontender, nondistended, soft. BS present. Ext: Warm, dry. No pitting edema. 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 Sensation to soft touch intact bilaterally without asymmetry. PT, DP, and radial pulses intact. Results & Data Results & Data ([facility]) Vital Signs (Past 12 Hours) Vital Signs Temp Pulse Resp BP BP Pulse Ox 05/17/21 12:13 37.7 C H 71 22 97/61 L 96 05/17/21 07:05 37.7 C H 76 19 103/67 94 PG Care Time/CCT Total # of Minutes Spent Total Time Spent with Patient: Total time spent is greater than 50% in coordination of care (as documented) at patient's floor/unit and/or counseling patient: Coding Level of Care Code 65616 Subseq Hosp Care Lvl 2 Diagnoses Acute respiratory failure with hypoxia J96.01 COVID-19 U07.1
[2021-05-18] MEDS: ENOXAPARIN INJ 40 MG/0.4 ML SYR SQ SCH ×2 (01:59→13:22)
[2021-05-18 06:26] LABS: Basophils # (auto) 0.01 K/uL (0-0.2); Basophils % (auto) 0.3 %; Hematocrit (blood only) 41.5 % (42-52); Hemoglobin 14.3 g/dL (14.0-18.0); Immature Granulocytes # (auto) 0.03 K/uL (0.00-0.02); Immature Granulocytes % (auto) 0.8 %; Lymphocytes % (auto) 34.3 %; Mean Corpuscular Hemoglobin 31.8 pg (25-34); Mean Corpuscular Hgb Conc 34.5 g/dL (32-36); Mean Corpuscular Volume 92.2 fL (80-100); Mean Platelet Volume 10.2 fL (7.4-10.4); Monocytes # (auto) 0.23 K/uL (0.11-0.59); Monocytes % (auto) 6.1 %; Neutrophils # (auto) 2.22 K/uL (1.4-6.5); Neutrophils % (auto) 58.5 %; Platelet Count 159 K/uL (130-400); RDW Coefficient of Variation 12.9 % (11.5-14.5); RDW Standard Deviation 43.8 fL (36.4-46.3); White Blood Count 3.79 K/uL (4.8-10.8)
[2021-05-18 06:59] LABS: Albumin Level 2.9 gm/dl (3.4-5.0); BUN Creatinine Ratio 21.5 (10-20); Calcium 8.7 mg/dl (8.5-10.1); Est GFR (Non-African American) 100.1 ml/min
[2021-05-18 07:02] LABS: Albumin Globulin Ratio 0.8 (0.9-2); Bilirubin,Total 0.3 mg/dl (0.2-1); Globulin 3.6 gm/dl (2.5-4.0); Total Protein 6.5 gm/dl (6.4-8.2)
--- NOTE | 2021-05-18 09:36 | XRay Report ---
SINGLE VIEW CHEST CLINICAL HISTORY: Covid. Cough FINDINGS: An AP, portable, upright chest radiograph is compared to study dated 05/16/2021. The cardio mediastinal silhouette is unremarkable. There is mild subpleural consolidation seen bilaterally. Atel ectasis is noted at the lung bases. No large pleural effusion or pneumothorax is identified. The bony thorax is grossly intact. IMPRESSION: Mild and predominantly subpleural consolidation is seen bilaterally, consistent with the reported history of a viral pneumonia. Radiographic follow-up to resolution is recommended. ACT 112: Negative or not required by law. Electronically signed by: Mello Dooley M.D. 05/18/2021 9:34 AM
[2021-05-18 09:43] LABS: Lyme Ab IgG w/WB Rflx Negative (Negative); Lyme Ab IgM w/WB Rflx Negative (Negative)
[2021-05-18] MEDS: dexAMETHasone 6 MG in SYRINGE 0 ML IV SCH (09:57)
--- NOTE | 2021-05-18 13:49 | Hospitalist Progress Note ---
Date of Service May 18, 2021 Assessment & Plan (1) Acute respiratory failure with hypoxia: Plan: Perry is a 55-year-old male with no significant past medical history who presents with acute hypoxic respiratory failure 2/2 Covid pneumonia. Presented with dehydration, fatigue, and shortness of breath. Acute hypoxic respiratory failure 2/2 Covid pneumonia Covid positive Vaccination status: Unvaccinated First day of symptoms: First day of sx 05/07-05/08/21 (8-9 days prior to admission) Flu A-/flu B- - CXR: Minimal patchy interstitial and alveolar opacities are present bilaterally characteristic of a viral type pneumonitis and probable early Covid 19 pneumonia. Hypoxic to 88% requiring 2 L of supplemental nasal cannula Home oxygen: No requirements Creatinine normal AST 68, ALT 52 on admit Remdesivir: Discussed risk/benefits. Offered to patient, although discussed that it is most effective early in disease with minimal benefit and is not indicated at day 10. Following shared decision making defer remdesivir, continue with Decadron. Continue dexamethasone daily x10-day course Baricitinib: Not indicated, CRP less than 7.5 and not requiring high flow - Lovenox COVID DVT PPx - 1/2 ppd tobacco use none in last week Patient again with intermittent fevers overnight, T-max 38.2 with associated fever/chills. Blood cultures x2 ordered. Leukopenic. Lyme/Anaplasma studies ordered. Procalcitonin remains negative. CXR Mild and predominantly subpleural consolidation is seen bilaterally, consistent with the reported history of a viral pneumonia. Radiographic follow-up to resolution is recommended. Patient b reathing well with inspiratory spirometry ordered, does not appear atelectatic. No tachycardia, leg swelling or rapidly increasing hypoxia to suggest PE as fever origin. If above eval negative will trial empiric treatment for atypical pneumonia/Z-James. (2) COVID-19: Plan: - As above Plan: DVT PPx: Lovenox as above Diet: Regular Disposition: Medical surgical CODE STATUS: Full code, discussed with patient Admission and Anticipated Discharge Date Admission Date: May 16, 2021 Subjective Perry is seen at the bedside this morning. He reports he was febrile overnight, and had night sweats associated with his fever. He feels well at time of bedside assessment and is not short of breath, reports he did feel he had some shortness of breath last night transiently. Denies nausea, vomiting, diarrhea, constipation. Denies chest pain, chest pressure, palpitations. Endorses cough. No leg swelling, no inspiratory pain. Review of Systems Review of Systems: All systems reviewed & are unremarkable except as noted in Subjective Physical Exam Physical Exam: General: A&Ox3. NAD. Cooperative. HEENT: Atraumatic, normocephalic. Visual acuity and hearing grossly intact. Pupils equal and reactive to light. Pulm: Scattered crackles, no wheezes or rhonchi. Symmetrical chest rise. No increased work of breathing. No respiratory distress. Cardiac: RRR, -mrg. Radial pulses intact and symmetrical. Abdominal: Nontender, nondistended, soft. BS present. Ext: Warm, dry. No pitting edema. 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 Sensation to soft touch intact bilaterally without asymmetry. PT, DP, and radial pulses intact. No calf asymmetry. Results & Data Results & Data ([facility]) Vital Signs (Past 12 Hours) Vital Signs Temp Pulse Resp BP BP Pulse Ox 05/18/21 13:05 37.1 C 05/18/21 12:21 38.0 C H 79 22 96/60 L 95 05/18/21 06:59 37.6 C H 69 19 101/62 92 PG Care Time/CCT Total # of Minutes Spent Total Time Spent with Patient: Total time spent is greater than 50% in coordination of care (as documented) at patient's floor/unit and/or counseling patient: Coding Level of Care Code 94262 Subseq Hosp Care Lvl 2 Diagnoses Acute respiratory failure with hypoxia J96.01 COVID-19 U07.1
[2021-05-19] MEDS: ENOXAPARIN INJ 40 MG/0.4 ML SYR SQ SCH ×2 (00:37→14:05)
[2021-05-19 06:33] LABS: Hematocrit (blood only) 43.2 % (42-52); Hemoglobin 14.7 g/dL (14.0-18.0); Mean Corpuscular Hemoglobin 31.4 pg (25-34); Mean Corpuscular Volume 92.3 fL (80-100); Mean Platelet Volume 10.2 fL (7.4-10.4); Platelet Count 190 K/uL (130-400); RDW Standard Deviation 43.3 fL (36.4-46.3); Red Blood Count 4.68 M/uL (4.7-6.1); White Blood Count 2.75 K/uL (4.8-10.8)
[2021-05-19 07:19] LABS: Albumin Level 2.8 gm/dl (3.4-5.0); Creatinine Clr Calc Pharmacy 115.9 ml/min; Est GFR (African American) 121.7 ml/min
[2021-05-19 07:22] LABS: Albumin Globulin Ratio 0.7 (0.9-2); Bilirubin,Total 0.4 mg/dl (0.2-1); Globulin 3.8 gm/dl (2.5-4.0); Total Protein 6.6 gm/dl (6.4-8.2)
[2021-05-19 07:32] LABS: ALC (manual) 1.14 K/uL (1.2-3.4); ANC (manual) 1.44 K/uL (1.4-6.5); Lymphocytes # (manual) 1.14 K/uL (1.2-3.4); Lymphocytes % (manual) 41.6 %; Monocytes # (manual) 0.17 K/uL (0.11-0.59); Monocytes % (manual) 6.2 %; Neutrophils # (manual) 1.44 K/uL (1.4-6.5); Neutrophils % (manual) 52.2 %
[2021-05-19] MEDS: dexAMETHasone 6 MG in SYRINGE 0 ML IV SCH (07:56)
[2021-05-19 11:15] VITALS: BP 102/65; TEMP 97.7
[2021-05-19 13:39] VITALS: PULSE 61; O2SAT 91
--- NOTE | 2021-05-19 16:46 | Discharge Summary ---
Date of Service May 19, 2021 Admission HPI Per Admitting Provider Perry is a 55-year-old male with no significant past medical history who presents with acute hypoxic respiratory failure 2/2 Covid pneumonia. Presented with dehydration, fatigue, and shortness of breath. Patient is 55-year-old male who denies other past medical history including heart disease and lung disease who presents with about 8 days of Covid symptoms which started with weakness, fatigue, cough, and some shortness of breath. He reports multiple people in his home including his children and his girlfriend have been sick and had a cough, his daughter was tested for school and was most recently negative. He reports he has had decreased appetite and some intermittent nausea but no vomiting, diarrhea, constipation. He has had loss of the sense of taste and smell. He is short of breath coming into the emergency department, reports he feels comfortable and not short of breath at time of bedside assessment while on 2 L of nasal cannula. He has a nonproductive cough. He is not vaccinated. Denies chest pain, chest pressure, palpitations, syncope, presyncope, focal weakness. Medical History: Reviewed, denies PMHx Medications: Reviewed, No chronic meds Surgical History: Reviewed, denies Allergies: Reviewed, NKDA Social History: 1/2 ppd tobacco use, non in last week. Declines nicotine patch. Denies etoh and rec drug use. Code Status: Full Principal Diagnosis Covid-19 pneumonia Discharge Exam Constitutional WD/WN, vitals as above Eyes EOM intact bilaterally; no conjunctival abnormality ENMT external ear and nose normal, oropharynx normal Neck trachea midline, no thyromegaly normal visual inspection Respiratory normal respiratory effort, lungs clear to auscultation no respiratory distress Cardiovascular RRR, no murmur, no edema Gastrointestinal (Abdomen) Inspection/Auscultation: abdomen normal to inspection; abdomen not distended Musculoskeletal no cyanosis or clubbing, extremities motor strength 5/5 Skin no rashes, warm and dry Neurologic moves all extremities and awake Psychiatric Orientation: alert, oriented to person and cooperative Discharge Data Allergies Allergy/AdvReac Type Severity Reaction Status Date / Time No Known Allergies Allergy Unverified 05/16/21 09:35 Consultations 05/16/21 10:31 ED Decision to Admit Stat Hospital Course (1) Acute respiratory failure with hypoxia: Perry is a 55-year-old male with no significant past medical history who presents with acute hypoxic respiratory failure 2/2 Covid pneumonia. Presented with dehydration, fatigue, and shortness of breath. Acute hypoxic respiratory failure 2/2 Covid pneumonia Covid positive Vaccination status: Unvaccinated First day of symptoms: First day of sx 05/07-05/08/21 (8-9 days prior to admission) Flu A-/flu B- - CXR: Minimal patchy interstitial and alveolar opacities are present bilaterally characteristic of a viral type pneumonitis and probable early Covid 19 pneumonia. Hypoxic to 88% requiring 2 L of supplemental nasal cannula Home oxygen: No requirements Creatinine normal AST 68, ALT 52 on admit Remdesivir: Discussed risk/benefits. Offered to patient, although discussed that it is most effective early in disease with minimal benefit and is not indicated at day 10. Following shared decision making defer remdesivir, continue with Decadron. Continue dexamethasone daily x10-day course Baricitinib: Not indicated, CRP less than 7.5 and not requiring high flow - Lovenox COVID DVT PPx - 1/2 ppd tobacco use none in last week [place] well by discharge. RT performed 2-step without any home O2 required. Patient requested discharge and seemed in good state of health for such. (2) COVID-19: - As above DVT PPx: Lovenox as above Diet: Regular Disposition: Medical surgical CODE STATUS: Full code, discussed with patient Total Time Total Time Spent Total Time Spent (In Minutes): 35 Discharge Plan Discharge Items Patient Disposition: Home - Self-Care Reason For Visit: COVID PNEUMONIA, [facility] Discharge Diagnosis: Covid-19 pneumonia Condition on Discharge: Good Activity: Resume your previous activity Non-emergency contact: Primary Care Provider Call non-emergency contact if: your symptoms worsen Follow-up/Referrals: Dario Culp III, MD [Primary Care Provider] - Diet: Regular Addtl Attending Provider Instructions: Mr. Whaley, You were admitted to the hospital with Covid-19 pneumonia. We treated you with s teroids and breathing treatments, and you are doing better. We are arranging for home oxygen (if needed) and a few more days of steroids, and I think you will continue to recover. Your next dose of steroids is tomorrow morning, then for the next 2 days after that. Please see your PCP this week to be sure you are on the mend. Given the duration of your symptoms, we do not think you need to isolate further after tomorrow. Pending Studies at Discharge: No Stand-Alone Forms: My [facility], Smoking Cessation Medications and DC Order Prescriptions: New dexamethasone 6 mg tablet 6 mg PO DAILY Qty: 3 RF: 0 Continued ibuprofen [Advil] 200 mg Tablet 600 mg PO QAM RF: 0 ascorbic acid (vitamin C) [Vitamin C] 125 mg Tablet,Chewable 0 mg PO QAM RF: 0 Discharge Orders: Discharge Order (Routine); Ordered 05/19/21 Ordered By: Ike Wing Admission Data Admit Date/Time: 05/16/21 11:05 Attending Provider: Ike Wing Admit Provider: Bakari Adams Primary Care Provider: Dario Culp III Other Providers: Ike Wing Other Interventions: Discharge Summary Assessment (RN) Last Done: 05/19/21 13:38 Coding Level of Care Code D/C DAY MANAGEMENT >30 MINS Diagnoses Acute respiratory failure with hypoxia J96.01 COVID-19 U07.1
== END 2021-05-19 14:05 | disposition home or self-care (01) | DRG 177 ==
LOC: ED 08:00 → EDINP 11:05 → SUATTDRO 11:05 → 2W 16:25